=== PATIENT | female | born 1950 | race Two or more races ===

== ENCOUNTER 2019-06-18 09:09 | Emergency (ER) | payer MEDICARE ==
[~2019-06-18] VITALS: Ht 152.4 cm; Wt 76.2 kg
[2019-06-18] MEDS ORDERED: SIMVASTATIN20 MG ORAL (09:19)
[2019-06-18] MEDS ORDERED: VENTOLIN HFA18 GM INH (09:19)
[2019-06-18] MEDS ORDERED: AMBIEN CR6.25 MG ORAL (09:19)
[2019-06-18] MEDS ORDERED: IPRAT-ALBUT 0.5-3 ML IH (09:19)
[2019-06-18] MEDS ORDERED: WIXELA 250-501 EACH IH (09:19)
[2019-06-18] MEDS ORDERED: NAPROXEN500 M2 ORAL (09:36)
[2019-06-18] MEDS ORDERED: OMEPRAZOLE20 M2 ORAL (09:36)
--- NOTE | 2019-06-18 09:40 | Emergency Room Report ---
History of Present Illness General Chief Complaint: Dyspnea/Respdistress Source: Patient Present Illness HPI Patient presents with complaints of shortness of breath and cough ongoing for the past 3 days patient reports that she has a history of COPD And has not had a flareup in several years Patient has increased sputum production Questionable chills denies any obvious fevers denies any vomiting or diarrhea denies any rash denies any recent travel or pleurisy Given the shortness of breath sensation and the Exertional dyspnea patient presents to the ER Allergies: Coded Allergies: PENICILLINS (Verified Allergy, Unknown, 06/18/19) Patient History Past Medical History: see triage record Reviewed Nursing Documentation: PMH: Agreed; PSxH: Agreed Nursing Documentation-PMH Past Medical History: No History, Except For Hx COPD: Yes Review of Systems All Other Systems: negative except mentioned in HPI Physical Exam Vital Signs Date Time Temp Pulse Resp B/P (MAP) Pulse Ox O2 Delivery O2 Flow Rate FiO2 06/18/19 09:14 97.3 112 19 133/70 (91) 98 Room Air Sp02 EP Interpretation: reviewed, normal General Appearance: mild distress - short of breath Head: normocephalic, atraumatic Eyes: bilateral eye PERRL, bilateral eye EOMI ENT: hearing grossly normal, normal pharynx Neck: full range of motion, supple Respiratory: no retraction, no accessory muscle use, crackles - With fine wheezing bilaterally Cardiovascular #1: regular rate, rhythm Gastrointestinal: non tender, soft Genitourinary: no CVA tenderness Musculoskeletal: normal inspection Neurologic: alert, oriented x3 Psychiatric: normal inspection Skin: no rash Lymphatic: no adenopathy Medical Decision Making Diagnostic Impression: Primary Impression: Dyspnea Additional Impression: COPD exacerbation ER Course Patient is a fairly complex patient with multiple differential to consideration including but not limited to cardiac cardiopulmonary and vascular emergencies Patient's x-ray imaging does not show any obvious acute disease patient did present somewhat tachycardic and with the shortness of breath CT imaging is obtained to evaluate for any pulmonary embolism this was read as negative for pulmonary embolism Patient has require repeat breathing treatments and steroids And requested for admission given her insurance request is transferred for further care Labs Test 06/18/19 09:55 06/18/19 10:00 Arterial Blood pH 7.504 (7.350-7.450) Arterial Blood Partial Pressure CO2 26.3 mmHg (35.0-45.0) Arterial Blood Partial Pressure O2 208.4 mmHg (75.0-100.0) Arterial Blood HCO3 20.2 mmol/L (22.0-26.0) Arterial Blood Oxygen Saturation 99.1 % (95-100) Arterial Blood Base Excess -1.4 (-2-2) Junior Test Positive White Blood Count 6.8 K/UL (4.8-10.8) Red Blood Count 4.73 M/UL (4.20-5.40) Hemoglobin 14.3 G/DL (12.0-16.0) Hematocrit 41.7 % (37.0-47.0) Mean Corpuscular Volume 88 FL (80-99) Mean Corpuscular Hemoglobin 30.3 PG (27.0-31.0) Mean Corpuscular Hemoglobin Concent 34.4 G/DL (32.0-36.0) Red Cell Distribution Width 12.0 % (11.6-14.8) Platelet Count 199 K/UL (150-450) Mean Platelet Volume 7.2 FL (6.5-10.1) Neutrophils (%) (Auto) 75.2 % (45.0-75.0) Lymphocytes (%) (Auto) 16.0 % (20.0-45.0) Monocytes (%) (Auto) 6.2 % (1.0-10.0) Eosinophils (%) (Auto) 1.7 % (0.0-3.0) Basophils (%) (Auto) 0.9 % (0.0-2.0) Sodium Level 137 MMOL/L (136-145) Potassium Level 4.0 MMOL/L (3.5-5.1) Chloride Level 102 MMOL/L (98-107) Carbon Dioxide Level 26 MMOL/L (21-32) Anion Gap 9 mmol/L (5-15) Blood Urea Nitrogen 9 mg/dL (7-18) Creatinine 0.8 MG/DL (0.55-1.30) Estimat Glomerular Filtration Rate > 60 mL/min (>60) Glucose Level 99 MG/DL (74-106) Lactic Acid Level 0.90 mmol/L (0.4-2.0) Calcium Level 9.3 MG/DL (8.5-10.1) Total Bilirubin 0.3 MG/DL (0.2-1.0) Aspartate Amino Transf (AST/SGOT) 31 U/L (15-37) Alanine Aminotransferase (ALT/SGPT) 26 U/L (12-78) Alkaline Phosphatase 73 U/L (46-116) Creatine Kinase MB 1.3 NG/ML (0.0-3.6) Troponin I 0.000 ng/mL (0.000-0.056) Pro-B-Type Natriuretic Peptide 305 pg/mL (0-125) Total Protein 8.5 G/DL (6.4-8.2) Albumin 4.3 G/DL (3.4-5.0) Globulin 4.2 g/dL Albumin/Globulin Ratio 1.0 (1.0-2.7) Lipase 145 U/L (73-393) EKG Diagnostic Results Rate: normal Rhythm: NSR ST Segments: no acute changes Rhythm Strip Diag. Results EP Interpretation: yes Rate: 90 Rhythm: NSR, no PVC's, no ectopy Chest X-Ray Diagnostic Results Chest X-Ray Diagnostic Results : Chest X-Ray Ordered: Yes # of Views/Limited/Complete: 1 View Indication: Shortness of Breath EP Interpretation: Yes Interpretation: no consolidation, no effusion, no pneumothorax Impression: No acute disease Electronically Signed by: Ludwig Castillo DO CT/MRI/US Diagnostic Results CT/MRI/US Diagnostic Results : Impression CTA chestImpression: No evidence of acute pulmonary embolus or other acute thoracic pathology Last Vital Signs Date Time Temp Pulse Resp B/P (MAP) Pulse Ox O2 Delivery O2 Flow Rate FiO2 06/18/19 09:14 97.3 112 19 133/70 (91) 98 Room Air Status: improved Disposition: XFER SHT-TRM HOSP Condition: Improved Referrals: NON PHYSICIAN (PCP) Ludwig Castillo DO Jun 18, 2019 09:40
[2019-06-18] MEDS ORDERED: Ipratropium 0.02% Inh Soln 2.5ml UD HHN ONE (09:45)
[2019-06-18] MEDS ORDERED: Albuterol ud Inhalation HHN ONE (09:45)
[2019-06-18] MEDS ORDERED: Solu-MEDROL 125mg Inj IVP ONE (09:45)
[2019-06-18] MEDS ORDERED: Albuterol ud Inhalation ONE (09:46)
--- NOTE | 2019-06-18 10:00 | NUR ---
ED Nurse Note:pt. came from home with c/o dispnea and SOB, VSS, ambulatory, A/Ox4, breathing treatment given, blood and cultures sent to labs, placed on temporary office assistant, continue monitoring, O2 sats 97% on RA
[2019-06-18 10:18] VITALS: BP 133/70
--- NOTE | 2019-06-18 10:22 | Diagnostic Imaging Report ---
Indication: Shortness of breath Technique: One view of the chest Comparison: none Findings: Lungs and pleural spaces are clear. Heart size is normal. Impression: No acute process
[2019-06-18 10:24] LABS: BASOPHILS % (AUTO) 0.9 % (0.0-2.0); EOSINOPHILS % (AUTO) 1.7 % (0.0-3.0); HEMATOCRIT 41.7 % (37.0-47.0); HEMOGLOBIN 14.3 G/DL (12.0-16.0); MEAN CORPUSCULAR VOLUME 88 FL (80-99); MONOCYTES % (AUTO) 6.2 % (1.0-10.0); NEUTROPHILS % (AUTO) 75.2 % (45.0-75.0); PLATELET COUNT 199 K/UL (150-450); RED BLOOD COUNT 4.73 M/UL (4.20-5.40); WHITE BLOOD COUNT 6.8 K/UL (4.8-10.8)
[2019-06-18 10:37] LABS: ANION GAP 9 mmol/L (5-15); BLOOD UREA NITROGEN 9 mg/dL (7-18); CALCIUM 9.3 MG/DL (8.5-10.1); CARBON DIOXIDE 26 MMOL/L (21-32); CHLORIDE 102 MMOL/L (98-107); CREATININE 0.8 MG/DL (0.55-1.30); SODIUM 137 MMOL/L (136-145)
[2019-06-18] MEDS ORDERED: Omnipaue 350mg/ml 100ml vial INJ PRN (10:45)
[2019-06-18 10:52] LABS: ALANINE AMINOTRANSFERASE 26 U/L (12-78); ALBUMIN 4.3 G/DL (3.4-5.0); ALKALINE PHOSPHATASE 73 U/L (46-116); ASPARTATE AMINO TRANSFERASE 31 U/L (15-37); BILIRUBIN,TOTAL 0.3 MG/DL (0.2-1.0); CKMB 1.3 NG/ML (0.0-3.6)
--- NOTE | 2019-06-18 11:29 | NUR ---
spoke to [place] case worker . patient will be a transfer but will call back with
--- NOTE | 2019-06-18 11:42 | NUR ---
ED Nurse Note:pt. had CT chest done
--- NOTE | 2019-06-18 11:57 | Diagnostic Imaging Report ---
ndication: Shortness of breath and cough for the last 3 days Technique: IV administration nonionic contrast. Spiral acquisitions obtained from the lung bases to the lung apices. Multiplanar and 3-D reconstructions were generated. Total dose length product 636 mGycm. CTDIvol(s) 75 mGy. Dose reduction achieved using automated exposure control Comparison: none Findings: The pulmonary arteries are well-opacified. No intraluminal filling defects or other findings to suggest acute pulmonary embolus are demonstrated. Normal caliber pulmonary arteries. No evidence of thoracic aortic aneurysm or dissection. There is very mild generalized interstitial prominence. There is central bronchial wall thickening which is also mild, as well as a few small cystic spaces and evidence of slight hyperinflation in the upper lobes bilaterally. No infiltrates, effusions, or congestion. The heart size is normal. No pericardial effusion demonstrated. Unremarkable thyroid. No mediastinal or hilar mass or adenopathy. No axillary or chest wall mass or adenopathy. The included upper abdominal viscera are unremarkable. Impression: No evidence of acute pulmonary embolus or other acute thoracic pathology Generalized mild interstitial prominence, central bronchial wall thickening, small cystic spaces and evidence of slight hyperinflation likely related to stated clinical history of COPD The CT scanner at [facility] is accredited by the [employer] and the scans are performed using protocols designed to limit radiation exposure to as low as reasonably achievable to attain images of sufficient resolution adequate for diagnostic evaluation.
[2019-06-18 13:01] VITALS: BP 134/66
--- NOTE | 2019-06-18 13:50 | NUR ---
ED Nurse Note:called report to [facility]- given to Amirah BEAR
[2019-06-18] MEDS ORDERED: Albuterol/Ipratropium 3ml neb ONE (14:04)
[2019-06-18 14:06] VITALS: BP 134/66
--- NOTE | 2019-06-18 14:06 | NUR ---
RESPIRATORY NOTE: RN called, pt request breathing tx before being tranferred. pt's currently receiving DuoNeb 3mL. will ask RN/MD for proper order.
[2019-06-18] MEDS ORDERED: Albuterol/Ipratropium 3ml neb HHN ONE (14:15)
--- NOTE | 2019-06-18 14:20 | NUR ---
ED Nurse Note:pt. was picked up by ALS transportation for transfer to different hospital
--- NOTE | 2019-06-19 12:41 | Cardiology Report ---
APPROVED REPORT EKG Measurement Heart [id number] N[address] abnormality Abnormal ECG
== END 2019-06-18 14:23 | disposition short-term general hospital (02) ==
LOC: EMR 09:34
DX: J44.1 Chronic obstructive pulmonary disease with (acute) exacerbation (principal); Z88.0 Allergy status to penicillin
CPT/HCPCS: 36415; 36600; 71045; 71275; 80053; 82553; 82803; 83605; 83690; 83880; 84484; 85025; 86710; 87040; 93005; 94640; 94664; 96374; 99284; J2930; Q9967; J7620